=== PATIENT | male | born 1950 | race Two or more races ===

== ENCOUNTER → 2019-08-31 | Outpatient (CLI) | payer MEDICARE, MEDICAID | END | disposition home or self-care (01) | LOC: RADPV 07:56 | PROVIDERS: ATTEND Hospitalist | DX: R16.0 Hepatomegaly, not elsewhere classified (principal); K70.10 Alcoholic hepatitis without ascites; N28.1 Cyst of kidney, acquired | CPT/HCPCS: 76700 ==

== ENCOUNTER 2022-07-05 12:38 | Emergency (ER) | payer MEDICARE, OTHER ==
[~2022-07-05] VITALS: Ht 172.7 cm; Wt 97.3 kg
[2022-07-05] MEDS ORDERED: ASPI-1444 PO (12:43)
[2022-07-05] MEDS ORDERED: ATOR-2 PO (12:43)
[2022-07-05] MEDS ORDERED: GABA800T9 PO (12:43)
[2022-07-05] MEDS ORDERED: DULA1.5P SQ (12:43)
[2022-07-05] MEDS ORDERED: BUME2TAB5 PO (12:43)
[2022-07-05] MEDS ORDERED: LISI40TA9 PO (12:43)
[2022-07-05] MEDS ORDERED: METO2.5T2 PO (12:43)
[2022-07-05] MEDS ORDERED: CLON0.1T2 PO (12:43)
[2022-07-05] MEDS ORDERED: APIX5TAB PO (12:43)
[2022-07-05] MEDS ORDERED: ESCI10 PO (12:43)
[2022-07-05] MEDS ORDERED: METO-408 PO (12:43)
[2022-07-05] MEDS ORDERED: INSU100I26 SQ (12:43)
[2022-07-05 14:01] LABS: BASOPHILS % (AUTO) 1.1 % (0.0-2.0); EOSINOPHILS % (AUTO) 2.6 % (1.0-6.0); HEMATOCRIT 29.1 % (41-53); HEMOGLOBIN 9.9 g/dL (13.5-17.5); LYMPHOCYTES # (AUTO) 0.9 K/uL (1.0-4.8); LYMPHOCYTES % (AUTO) 9.9 % (22.0-44.0); MEAN CORPUSCULAR HEMOGLOBIN 30.4 pg (26.0-34.0); MEAN CORPUSCULAR HGB CONC 33.9 G/dL (31.0-37.0); MEAN CORPUSCULAR VOLUME 90 fL (80-100); MONOCYTES # (AUTO) 0.6 K/uL (0.1-1.0); MONOCYTES % (AUTO) 7.2 % (2.0-9.0); NEUTROPHILS # (AUTO) 7.1 K/uL (1.8-7.7); NEUTROPHILS % (AUTO) 79.2 % (40.0-70.0); PLATELET COUNT (AUTO) 200 K/uL (150-450); RED BLOOD CELL COUNT(AUTO) 3.24 MIL/uL (4.50-5.90)
[2022-07-05 14:13] LABS: CALCIUM, TOTAL 7.9 mg/dL (8.8-10.5); CREATININE 4.46 mg/dL (0.60-1.30); POTASSIUM 4.6 mmol/L (3.5-5.1)
[2022-07-05 14:19] LABS: ALBUMIN 2.7 g/dL (3.4-5.0); BILIRUBIN,TOTAL 0.2 mg/dL (0.1-1.0); TOTAL PROTEIN, SERUM 7.5 g/dL (6.4-8.2)
[2022-07-05 18:40] VITALS: BP 135/80
== END 2022-07-05 18:44 | disposition home or self-care (01) ==
LOC: EMS 12:38
DX: S70.02XA Contusion of left hip, initial encounter (principal); E11.9 Type 2 diabetes mellitus without complications; I11.9 Hypertensive heart disease without heart failure; E78.00 Pure hypercholesterolemia, unspecified; W19.XXXA Unspecified fall, initial encounter; Y93.89 Activity, other specified; Y92.89 Other specified places as the place of occurrence of the external cause; Y99.8 Other external cause status
CPT/HCPCS: 70450; 73503; 80053; 82962; 84484; 85025; 99285